=== PATIENT | male | born 1990 | race African-American/Black ===

== ENCOUNTER 2024-08-07 22:53 | Emergency (ER) | payer SELFPAY ==
[~2024-08-07] VITALS: Ht 172.7 cm; Wt 87.0 kg
[2024-08-08 00:01] VITALS: O2SAT 99
[2024-08-08] MEDS ORDERED: ALBU90AE INH (01:28)
[2024-08-08 01:30] VITALS: BP 119/68; PULSE 78; RESP 18; TEMP 36.89184; O2SAT 100
== END 2024-08-08 01:40 | disposition home or self-care (01) ==
LOC: ER 22:53
DX: Z76.0 Encounter for issue of repeat prescription (principal); J45.909 Unspecified asthma, uncomplicated
CPT/HCPCS: 99281

== ENCOUNTER 2025-01-03 09:52 | Emergency (ER) | payer MEDICAID, OTHER ==
[~2025-01-03] VITALS: Ht 180.3 cm; Wt 79.0 kg
[~2025-01-03 09:52] MED LIST: ALBU90AE INH
[2025-01-03 09:55] VITALS: O2SAT 100
[2025-01-03] MEDS: KETOROLAC 30MG/ML VIAL IM SCH (10:25)
[2025-01-03] MEDS: LIDOCAINE HCL 1% 20ML VIAL INFIL NR (11:00)
[2025-01-03 11:05] LABS: BASOPHILS % 1.2 % (0.0-2.0); HEMATOCRIT. 44.8 % (42.0-52.0); LYMPHOCYTES % 32.2 % (20.0-50.0); MEAN CORPUSCULAR HGB CONC 33.6 g/dL (31.0-37.0); MEAN CORPUSCULAR VOLUME 86.3 fL (80.0-94.0); MEAN PLATELET VOLUME 9.1 fl (7.4-10.4); MONOCYTES % 10.7 % (2.0-8.0); NEUTROPHILS % 46.9 % (40.0-76.0); PLATELET 239 x1000/uL (130-400); RED BLOOD CELL COUNT 5.19 mill/uL (4.7-6.1); RED CELL DISTRIBUTION WIDTH 12.6 % (11.6-14.6); WHITE BLOOD COUNT 3.4 x1000/uL (4.5-11.0)
[2025-01-03 11:34] LABS: CHLORIDE 107 mEq/L (98-107); SODIUM 140 mEq/L (136-145)
[2025-01-03 11:35] LABS: CALCIUM 9.7 mg/dL (8.7-10.4); CARBON DIOXIDE 28 mEq/L (21-32)
[2025-01-03 11:40] LABS: CREATININE 1.1 mg/dL (0.6-1.3); GLUCOSE 94 mg/dL (70-105); UREA NITROGEN BLOOD 12 mg/dL (9-23)
[2025-01-03 11:42] LABS: ALANINE AMINOTRANSFERASE 17 IU/L (10-49); ASPARTATE AMINOTRANSFERASE 21 IU/L (<34); BILIRUBIN DIRECT 0.1 mg/dL (<=3.0)
[2025-01-03 11:43] LABS: BILIRUBIN TOTAL 0.4 mg/dL (0.1-1.0); PROTEIN TOTAL 7.5 g/dL (6.0-8.3)
[2025-01-03 11:52] LABS: CLARITY URINE CLEAR (CLEAR); COLOR URINE YELLOW (YELLOW); GLUCOSE URINE NEGATIVE (NEGATIVE); KETONES URINE NEGATIVE (NEGATIVE); LEUKOCYTE ESTERASE URINE NEGATIVE (NEGATIVE); NITRITE URINE NEGATIVE (NEGATIVE); OCCULT BLOOD URINE NEGATIVE (NEGATIVE); PROTEIN URINE NEGATIVE (NEGATIVE); SPECIFIC GRAVITY URINE 1.017 (1.005-1.030)
[2025-01-03] MEDS: CEFTRIAXONE SODIUM 500MG VIAL IM NR (12:00)
[2025-01-03] MEDS ORDERED: DOXY100C5 MT (12:18)
[2025-01-03] MEDS ORDERED: POLY17PO3 MT (12:18)
[2025-01-03 12:19] VITALS: BP 118/68; PULSE 61; RESP 16; TEMP 36.6; O2SAT 98
[2025-01-04 19:06] LABS: CHLAMYDIA TRACHOMATIS NAA Negative (Negative); NEISSERIA GONORRHOEAE NAA Negative (Negative)
== END 2025-01-03 12:20 | disposition home or self-care (01) ==
LOC: ER 09:52
DX: R10.30 Lower abdominal pain, unspecified (principal); J45.909 Unspecified asthma, uncomplicated; Z20.2 Contact with and (suspected) exposure to infections with a predominantly sexual mode of transmission; Z79.899 Other long term (current) drug therapy
CPT/HCPCS: 87491; 87591; 80076; 80048; 81003; 83690; 85025; 86592; 36415; 96372; 99284; J0696; J1885; J2003; Z7610

== ENCOUNTER 2025-04-24 21:15 | Emergency (ER) | payer MEDICAID ==
[~2025-04-24] VITALS: Ht 177.8 cm; Wt 79.0 kg
[~2025-04-24 21:15] MED LIST changes: +DOXY100C5 MT; +POLY17PO3 MT
[2025-04-24 21:35] VITALS: O2SAT 100
[2025-04-24] MEDS ORDERED: ALBU90AE INH (22:26)
[2025-04-24 22:54] VITALS: BP 125/78; PULSE 66; RESP 18; TEMP 36.9; O2SAT 100
== END 2025-04-24 22:54 | disposition home or self-care (01) ==
LOC: ER 21:15
DX: J45.901 Unspecified asthma with (acute) exacerbation (principal); Z76.0 Encounter for issue of repeat prescription; F12.90 Cannabis use, unspecified, uncomplicated; Z87.891 Personal history of nicotine dependence
CPT/HCPCS: 99282

== ENCOUNTER 2025-06-19 13:26 | Emergency (ER) | payer MEDICAID ==
[~2025-06-19] VITALS: Ht 177.8 cm; Wt 77.0 kg
[2025-06-19 13:35] VITALS: O2SAT 98
[2025-06-19] MEDS: TETRACAINE 0.5% OPHTH DROPS 4ML BOTHEYE ONE (14:03)
[2025-06-19] MEDS: FLUORESCEIN SODIUM 1MG/STRIP BOTHEYE ONE (14:03)
[2025-06-19] MEDS ORDERED: AZEL6DRO5 EACHEYE (14:44)
[2025-06-19] MEDS ORDERED: OCUFLX EACHEYE (14:44)
[2025-06-19 14:50] VITALS: BP 120/70; PULSE 88; RESP 15; TEMP 36.6; O2SAT 98
== END 2025-06-19 14:51 | disposition home or self-care (01) ==
LOC: ER 13:26
DX: H10.89 Other conjunctivitis (principal); J45.909 Unspecified asthma, uncomplicated; F12.90 Cannabis use, unspecified, uncomplicated; Z79.899 Other long term (current) drug therapy
CPT/HCPCS: 99283

== ENCOUNTER 2025-06-26 08:58 | Emergency (ER) | payer MEDICAID ==
[~2025-06-26] VITALS: Ht 180.3 cm; Wt 82.0 kg
[~2025-06-26 08:58] MED LIST changes: +AZEL6DRO5 EACHEYE; +OCUFLX EACHEYE
[2025-06-26 10:04] VITALS: PULSE 104; RESP 20; O2SAT 97
[2025-06-26] MEDS: IPRATROPIUM/ALBUTEROL 0.5-3(2.5)MG/3ML NEB HHN SCH (10:08)
[2025-06-26 10:14] LABS: BASOPHILS % 0.6 % (0.0-2.0); EOSINOPHILS % 11.4 % (0.0-5.0); HEMATOCRIT. 47.7 % (42.0-52.0); HEMOGLOBIN. 15.6 g/dL (14.0-18.0); LYMPHOCYTES % 11.5 % (20.0-50.0); MEAN PLATELET VOLUME 9.2 fl (7.4-10.4); MONOCYTES % 11.8 % (2.0-8.0); NEUTROPHILS % 64.7 % (40.0-76.0); PLATELET 261 x1000/uL (130-400); RED BLOOD CELL COUNT 5.59 mill/uL (4.7-6.1); RED CELL DISTRIBUTION WIDTH 13.0 % (11.6-14.6)
[2025-06-26 10:31] LABS: CREATININE 1.1 mg/dL (0.6-1.3); UREA NITROGEN BLOOD 6 mg/dL (9-23)
[2025-06-26] MEDS: ALBUTEROL (0.083%) 2.5MG/3ML NEB HHN ONE ×2 (11:33→11:42)
[2025-06-26 11:42] VITALS: PULSE 119; RESP 18; O2SAT 94
[2025-06-26] MEDS ORDERED: P20 PO (12:08)
[2025-06-26] MEDS ORDERED: BUDE6HFA INH (12:09)
[2025-06-26] MEDS: PREDNISONE 20MG TABLET PO ONE (12:26)
[2025-06-26 12:50] VITALS: BP 130/79; PULSE 99; RESP 17; TEMP 36.8; O2SAT 98
== END 2025-06-26 12:51 | disposition home or self-care (01) ==
LOC: ER 08:58
DX: J45.901 Unspecified asthma with (acute) exacerbation (principal); B34.9 Viral infection, unspecified
CPT/HCPCS: 80048; 85025; 36415; 71045; 94640; 93005; 98960; 99285; J7512; Z7610 ×3; 94664